=== PATIENT | male | born 1960 | race Caucasian/White ===

== ENCOUNTER 2017-03-05 15:49 | Inpatient (IN) | payer OTHER ==
[~2017-03-05] VITALS: Ht 177.8 cm; Wt 96.1 kg
[2017-03-05 16:03] LABS: BASOPHIL COUNT 0.1 K/uL (0-0.1); EOSINOPHIL (%) 1.6 % (0-5); EOSINOPHIL COUNT 0.3 K/uL (0-0.3); HEMATOCRIT 45.9 % (38.0-50.0); IMMATURE GRANULOCYTE (%) 0.7 % (0.0-0.7); IMMATURE GRANULOCYTE COUNT 0.1 K/uL; INSTRUMENT ABS NEUTROPHIL CT 11.4 K/uL; LYMPHOCYTE COUNT 2.1 K/uL (1.0-2.8); MCH 30.6 PG (29.0-34.0); MCHC 33.6 G/DL (30.0-36.0); MCV 91.3 FL (86-99); MEAN PLAT.VOLUME 9.6 uM^3 (9.0-12.4); MONOCYTE (%) 9.4 % (3-12); MONOCYTE COUNT 1.5 K/uL (0-0.8); NEUTROPHIL (%) 74.2 % (45-76); NEUTROPHIL COUNT 11.4 K/uL (1.8-6.4); PLATELET COUNT 342 K/uL (156-360); RBC DIS.WIDTH-CV 13.7 % (11.8-14.6); RBC DIS.WIDTH-SD 46.4 % (39-53); RED BLOOD COUNT 5.03 M/uL (4.00-5.50); WHITE BLOOD COUNT 15.4 K/uL (4.1-10.2)
[2017-03-05 16:08] LABS: BASE EXCESS -2.3 mEq/L (-3 to +3); BICARBONATE 19.1 mEq/L (22-26); CARBOXY HGB 2.5 % (0-5); COMMENTS - BLOOD GASES A+C+; DEVICE NRBM; METHEMOGLOBIN 1.2 % (0-1.5); O2 FLOW 15 L/MIN; PCO2 25 mm Hg (35-45); PO2 75 mm Hg (80-100); SITE RR; pH 7.49 (7.35-7.45)
[2017-03-05 16:13] LABS: AMYLASE 77 IU/L (1-118)
[2017-03-05 16:14] LABS: CHLORIDE 106 mEq/L (99-109); POTASSIUM 3.9 mEq/L (3.7-5.4); SODIUM 141 mEq/L (136-147)
[2017-03-05 16:15] LABS: GLUCOSE 105 mg/dL (70-99)
[2017-03-05 16:17] LABS: ANION GAP 14 MEQ/L (2-14)
[2017-03-05 16:18] LABS: SERUM ETHYL ALCOHOL < 10 mg/dL
[2017-03-05 16:19] LABS: GFR ESTIMATE (CALCULATED) 47 mL/min/
[2017-03-05 16:20] LABS: PROTHROMBIN TIME 10.6 (9.2-11.2); PTT 28.2 (25-32); UREA NITROGEN (BUN) 20 mg/dL (9-23)
[2017-03-05 16:22] LABS: LIPASE 11 U/L (1.0-51.0)
[2017-03-05 16:24] LABS: TROP-I INTERPRETATION NEGATIVE; TROPONIN-I 0.07 ng/mL (0.0-0.30)
[2017-03-05 20:53] LABS: ADD MIUA? NO; BILIRUBIN NEGATIVE; BLOOD NEGATIVE; COLOR YELLOW ((YELLOW)); GLUCOSE (STRIP) NEGATIVE; KETONES NEGATIVE; LEUKOCYTES NEGATIVE; NITRITE NEGATIVE; PROTEIN (STRIP) NEGATIVE; SPECIFIC GRAVITY 1.031 (1.000-1.030); UCUL ADDED? NO; UROBILINOGEN 0.2 MG/DL (0.2-1.0)
[2017-03-05 21:16] LABS: AMPHETAMINE NEGATIVE (500 ng/mL); BARBITURATES NEGATIVE (200 ng/mL); BENZODIAZEPINES NEGATIVE (150 ng/mL); COCAINE NEGATIVE (150 ng/mL); INTERNAL CONTROLS VALID? YES; METHADONE NEGATIVE (200 ng/mL); METHAMPHETAMINE NEGATIVE (500 ng/mL); OPIATES (MORPHINE) NEGATIVE (100 ng/mL); OXYCODONE NEGATIVE (100 ng/mL); PHENCYCLIDINE NEGATIVE (25 ng/mL); PROPOXYPHENE NEGATIVE (300 ng/mL); THC CANNABINOIDS NEGATIVE (50 ng/mL); TRICYCLIC ANTIDEPRESSANTS NEGATIVE (300 ng/mL)
[2017-03-05 23:26] LABS: TROP-I INTERPRETATION NEGATIVE; TROPONIN-I 0.13 ng/mL (0.0-0.30)
[2017-03-06] VITALS (8 sets, daily range): BP systolic 119–169; BP diastolic 87–96
[2017-03-06 05:30] LABS: HEMATOCRIT 40.4 % (38.0-50.0); MCH 30.3 PG (29.0-34.0); MCHC 33.7 G/DL (30.0-36.0); MEAN PLAT.VOLUME 9.8 uM^3 (9.0-12.4); PLATELET COUNT 316 K/uL (156-360); RBC DIS.WIDTH-CV 13.7 % (11.8-14.6); RBC DIS.WIDTH-SD 45.2 % (39-53); RED BLOOD COUNT 4.49 M/uL (4.00-5.50)
[2017-03-06 05:48] LABS: TROP-I INTERPRETATION NEGATIVE
[2017-03-06 05:52] LABS: ALKALINE PHOSPHATASE 54 IU/L (3-129); ANION GAP 13 MEQ/L (2-14); CHLORIDE 102 MEQ/L (99-109); GFR ESTIMATE (CALCULATED) 51 mL/min/; GLUCOSE 93 mg/dL (70-99); POTASSIUM 3.7 MEQ/L (3.7-5.4); SAMPLE HEMOLYSIS CHECK 0; SAMPLE ICTERIC CHECK 0; SAMPLE LIPEMIA CHECK 0; SODIUM 134 MEQ/L (136-147); TOTAL BILIRUBIN 1.4 MG/DL (0.0-1.0); UREA NITROGEN (BUN) 23 mg/dL (9-23)
[2017-03-06 14:39] LABS: TROP-I INTERPRETATION NEGATIVE; TROPONIN-I 0.08 ng/mL (0.0-0.30)
[2017-03-06 22:28] LABS: TROP-I INTERPRETATION NEGATIVE; TROPONIN-I 0.07 ng/mL (0.0-0.30)
[2017-03-07 04:30] VITALS: BP 137/91
[2017-03-07 07:49] VITALS: BP 145/91
[2017-03-07 11:12] VITALS: BP 134/81
[2017-03-07 15:12] VITALS: BP 129/58
[2017-03-07] MEDS ORDERED: TYLENOL EXTRA500 MG PO (17:04)
[2017-03-07] MEDS ORDERED: PREDNISONE PO (17:06)
[2017-03-07 19:06] VITALS: BP 142/83
[2017-03-07 23:17] VITALS: BP 128/77
[2017-03-08 04:29] VITALS: BP 143/89
[2017-03-08 06:43] VITALS: BP 133/83
[2017-03-08 15:14] VITALS: BP 125/70
[2017-03-08 19:25] VITALS: BP 119/75
[2017-03-08 23:22] VITALS: BP 138/88
[2017-03-09 03:01] VITALS: BP 117/58
[2017-03-09 05:29] LABS: EOSINOPHIL (%) 0 % (0-5); HEMATOCRIT 41.5 % (38.0-50.0); IMMATURE GRANULOCYTE (%) 1.2 % (0.0-0.7); IMMATURE GRANULOCYTE COUNT 0.2 K/uL; INSTRUMENT ABS NEUTROPHIL CT 17.7 K/uL; MCH 30.5 PG (29.0-34.0); MCV 89.8 FL (86-99); MEAN PLAT.VOLUME 9.7 uM^3 (9.0-12.4); MONOCYTE (%) 2.8 % (3-12); MONOCYTE COUNT 0.5 K/uL (0-0.8); NEUTROPHIL (%) 90.8 % (45-76); NEUTROPHIL COUNT 17.7 K/uL (1.8-6.4); PLATELET COUNT 421 K/uL (156-360); RBC DIS.WIDTH-CV 13.6 % (11.8-14.6); RBC DIS.WIDTH-SD 44.7 % (39-53); RED BLOOD COUNT 4.62 M/uL (4.00-5.50); WHITE BLOOD COUNT 19.5 K/uL (4.1-10.2)
[2017-03-09 06:15] LABS: ALKALINE PHOSPHATASE 59 IU/L (3-129); ANION GAP 12 MEQ/L (2-14); CHLORIDE 105 MEQ/L (99-109); GFR ESTIMATE (CALCULATED) 44 mL/min/; SAMPLE HEMOLYSIS CHECK 0; SAMPLE ICTERIC CHECK 0; SAMPLE LIPEMIA CHECK 0; SODIUM 135 MEQ/L (136-147)
[2017-03-09 06:16] LABS: GLUCOSE 170 mg/dL (70-99); UREA NITROGEN (BUN) 46 mg/dL (9-23)
[2017-03-09 06:17] LABS: POTASSIUM 5.1 MEQ/L (3.7-5.4); TOTAL BILIRUBIN 0.3 MG/DL (0.0-1.0)
[2017-03-09 09:14] VITALS: BP 128/65
[2017-03-09 11:30] VITALS: BP 126/64
[2017-03-09 16:00] VITALS: BP 123/92
[2017-03-09 19:28] VITALS: BP 124/71
[2017-03-09 23:58] VITALS: BP 124/64
[2017-03-10 03:50] VITALS: BP 111/70
[2017-03-10 08:30] VITALS: BP 126/80
[2017-03-10] MEDS ORDERED: LASIX40 MG PO (10:20)
[2017-03-10] MEDS ORDERED: LEVAQUIN500 MG PO (10:20)
[2017-03-10] MEDS ORDERED: KLOR-CON SPRIN10 MEQ PO (10:21)
[2017-03-10] MEDS ORDERED: PROTONIX40 MG PO (10:21)
[2017-03-10] MEDS ORDERED: PANTOPRAZOLE SO40 MG PO (10:22)
[2017-03-10] MEDS ORDERED: CARVEDILOL3.125 MG PO (10:22)
[2017-03-10] MEDS ORDERED: ENTRESTO 24 MG1 EACH PO (10:22)
[2017-03-10] MEDS ORDERED: DUONEB 2.5-0.5 M3 ML AEROSOL (10:22)
[2017-03-10] MEDS ORDERED: CLEVER CHOICE MC (10:24)
[2017-03-10] MEDS ORDERED: PREDNISONE10 MG PO (10:25)
[2017-03-10] MEDS ORDERED: AERONEB GO1 EACH MC (10:25)
== END 2017-03-10 11:34 | disposition home or self-care (01) | DRG 194 ==
LOC: EME → EDBD 15:49 → EME 15:49 → EDOF 19:13 → 4EAST 19:13
PROVIDERS: Emergency Medicine; Internal Medicine
DX: J18.9 Pneumonia, unspecified organism (principal); I50.32 Chronic diastolic (congestive) heart failure; I47.2 Ventricular tachycardia; I16.0 Hypertensive urgency; I42.0 Dilated cardiomyopathy; R09.02 Hypoxemia; I25.10 Atherosclerotic heart disease of native coronary artery without angina pectoris; I34.0 Nonrheumatic mitral (valve) insufficiency; E78.5 Hyperlipidemia, unspecified; I44.7 Left bundle-branch block, unspecified; Z68.31 Body mass index [BMI] 31.0-31.9, adult; E66.9 Obesity, unspecified
CPT/HCPCS: 36600; 71010; 71020; 71275; 80048; 80053; 81003; 82150; 82803; 83605; 83690; 83880; 84484; 85025; 85027; 85610; 85730; 86900; 86901; 87040; 93005; 93306; 94640; 94640 76; 94799; 99202; 99281; 99285; C1769; C1887; G0480; J0456; J0692; J1644; J1650; J1940; J1956; J2250; J2930; J3010; J7040; J7050

== ENCOUNTER 2017-06-14 17:38 | Observation (INO) | payer OTHER ==
[~2017-06-14] VITALS: Ht 180.3 cm; Wt 108.2 kg
[~2017-06-14 17:38] MED LIST: AERONEB GO1 EACH MC; CARVEDILOL3.125 MG PO; CLEVER CHOICE MC; DUONEB 2.5-0.5 M3 ML AEROSOL; ENTRESTO 24 MG1 EACH PO; KLOR-CON SPRIN10 MEQ PO; LASIX40 MG PO; LEVAQUIN500 MG PO; PANTOPRAZOLE SO40 MG PO; PREDNISONE PO; PREDNISONE10 MG PO; PROTONIX40 MG PO; TYLENOL EXTRA500 MG PO
[2017-06-14 18:31] LABS: HEMATOCRIT 37.2 % (38.0-50.0); MCH 31.9 PG (29.0-34.0); MCHC 34.7 G/DL (30.0-36.0); MCV 92.1 FL (86-99); MEAN PLAT.VOLUME 9.7 uM^3 (9.0-12.4); PLATELET COUNT 249 K/uL (156-360); RBC DIS.WIDTH-CV 13.4 % (11.8-14.6); RBC DIS.WIDTH-SD 45.6 % (39-53); RED BLOOD COUNT 4.04 M/uL (4.00-5.50)
[2017-06-14 18:46] LABS: CHLORIDE 100 mEq/L (99-109); POTASSIUM 4.9 mEq/L (3.7-5.4); SODIUM 133 mEq/L (136-147)
[2017-06-14 18:48] LABS: GLUCOSE 89 mg/dL (70-99)
[2017-06-14 18:49] LABS: ANION GAP 12 MEQ/L (2-14)
[2017-06-14 18:52] LABS: GFR ESTIMATE (CALCULATED) 23 mL/min/
[2017-06-14 18:53] LABS: UREA NITROGEN (BUN) 28 mg/dL (9-23)
[2017-06-14 19:01] LABS: INFLUENZA A VIRAL ANTIGEN NEGATIVE; INFLUENZA B VIRAL ANTIGEN NEGATIVE
[2017-06-14 19:45] LABS: TOTAL BILIRUBIN 1.1 mg/dL (0.0-1.0)
[2017-06-14 19:46] LABS: ALKALINE PHOSPHATASE 49 IU/L (3-129)
[2017-06-14 19:49] LABS: DIRECT BILIRUBIN 0.3 mg/dL (0.0-0.3)
[2017-06-14 19:50] LABS: LIPASE 14 U/L (1.0-51.0)
[2017-06-14] MEDS ORDERED: EDARBYCLOR 40-1 EAC1 PO (19:55)
[2017-06-14] MEDS ORDERED: ASPIR 8181 M1 PO (19:56)
[2017-06-14 20:00] LABS: TROP-I INTERPRETATION NEGATIVE; TROPONIN-I 0.02 ng/mL (0.0-0.30)
[2017-06-14 20:56] LABS: ADD MIUA? NO; BILIRUBIN NEGATIVE; BLOOD NEGATIVE; COLOR YELLOW ((YELLOW)); GLUCOSE (STRIP) NEGATIVE; KETONES 5; LEUKOCYTES NEGATIVE; NITRITE NEGATIVE; PROTEIN (STRIP) NEGATIVE; SPECIFIC GRAVITY 1.013 (1.000-1.030); UCUL ADDED? NO; UROBILINOGEN 0.2 MG/DL (0.2-1.0)
[2017-06-14] MEDS ORDERED: FUROSEMIDE40 MG PO (22:08)
[2017-06-14 22:56] VITALS: BP 121/58
[2017-06-15] VITALS (7 sets, daily range): BP systolic 110–132; BP diastolic 53–81
[2017-06-15 05:33] LABS: ANION GAP 11 MEQ/L (2-14); CHLORIDE 103 MEQ/L (99-109); GFR ESTIMATE (CALCULATED) 30 mL/min/; GLUCOSE 100 mg/dL (70-99); SAMPLE HEMOLYSIS CHECK 0; SAMPLE ICTERIC CHECK 0; SAMPLE LIPEMIA CHECK 0; SODIUM 136 MEQ/L (136-147); UREA NITROGEN (BUN) 26 mg/dL (9-23)
[2017-06-16 03:30] VITALS: BP 137/66
[2017-06-16 05:44] LABS: BASOPHIL COUNT 0.1 K/uL (0-0.1); EOSINOPHIL (%) 5.6 % (0-5); EOSINOPHIL COUNT 0.3 K/uL (0-0.3); HEMATOCRIT 35.6 % (38.0-50.0); IMMATURE GRANULOCYTE (%) 0.2 % (0.0-0.7); INSTRUMENT ABS NEUTROPHIL CT 2.6 K/uL; LYMPHOCYTE COUNT 1.8 K/uL (1.0-2.8); MCH 31.6 PG (29.0-34.0); MCHC 33.7 G/DL (30.0-36.0); MCV 93.7 FL (86-99); MEAN PLAT.VOLUME 9.8 uM^3 (9.0-12.4); MONOCYTE (%) 20.5 % (3-12); MONOCYTE COUNT 1.3 K/uL (0-0.8); NEUTROPHIL (%) 42.5 % (45-76); NEUTROPHIL COUNT 2.6 K/uL (1.8-6.4); PLATELET COUNT 239 K/uL (156-360); RBC DIS.WIDTH-CV 13.1 % (11.8-14.6); RBC DIS.WIDTH-SD 45.1 % (39-53); WHITE BLOOD COUNT 6.1 K/uL (4.1-10.2)
[2017-06-16 06:26] LABS: ANION GAP 9 MEQ/L (2-14); CHLORIDE 103 MEQ/L (99-109); GFR ESTIMATE (CALCULATED) 37 mL/min/; GLUCOSE 101 mg/dL (70-99); POTASSIUM 4.5 MEQ/L (3.7-5.4); SAMPLE HEMOLYSIS CHECK 0; SAMPLE ICTERIC CHECK 0; SAMPLE LIPEMIA CHECK 0; SODIUM 137 MEQ/L (136-147); UREA NITROGEN (BUN) 23 mg/dL (9-23)
[2017-06-16 08:00] VITALS: BP 133/61
[2017-06-16 11:24] VITALS: BP 141/80
[2017-06-16] MEDS ORDERED: Tums,OsCal PO (12:09)
[2017-06-16] MEDS ORDERED: EDARBI40 MG PO (12:13)
== END 2017-06-16 13:33 | disposition home or self-care (01) ==
LOC: EME 17:38 → EDOF 21:24 → 5WEST 21:24 → ENRESERV 21:27 → 5WEST 22:38 → ENPENDDIS 06-16 → 5WEST 06-16 13:33
PROVIDERS: Family Medicine; Physician Assistant
DX: E86.0 Dehydration (principal); N17.9 Acute kidney failure, unspecified; J45.909 Unspecified asthma, uncomplicated; I10 Essential (primary) hypertension; E78.5 Hyperlipidemia, unspecified; E66.9 Obesity, unspecified; Z68.33 Body mass index [BMI] 33.0-33.9, adult; Z82.49 Family history of ischemic heart disease and other diseases of the circulatory system; Z82.61 Family history of arthritis; J06.9 Acute upper respiratory infection, unspecified
CPT/HCPCS: 71020; 80048; 80076; 81003; 83605; 83690; 83880; 84484; 85025; 85027; 87040; 87502; 87651 90; 93005; 99281; 99285; G0378; J7030; J7040

== ENCOUNTER → 2018-02-15 | Outpatient (CLI) | payer OTHER ==
[~2018-02-15] MED LIST changes: +ASPIR 8181 M1 PO; +EDARBI40 MG PO; +EDARBYCLOR 40-1 EAC1 PO; +FUROSEMIDE40 MG PO; +Tums,OsCal PO
== END | disposition home or self-care (01) ==
LOC: RAD 09:45
DX: Z02.71 Encounter for disability determination (principal); M47.896 Other spondylosis, lumbar region; Z98.1 Arthrodesis status
CPT/HCPCS: 72100